=== PATIENT | male | born 1950 | race Caucasian/White ===

== ENCOUNTER 2019-02-16 14:47 | Outpatient (RCR) | payer MEDICARE, OTHER | END 2019-05-17 | disposition home or self-care (01) | LOC: ONC 14:47 | PROVIDERS: ATTEND Radiology Radiation Oncology | DX: C61 Malignant neoplasm of prostate (principal); Z87.891 Personal history of nicotine dependence; Z79.899 Other long term (current) drug therapy | CPT/HCPCS: 99204 ==